=== PATIENT | male | born 1955 | race African-American/Black ===

== ENCOUNTER 2017-08-15 03:11 | Emergency (ER) | payer OTHER ==
[~2017-08-15] VITALS: Ht 182.9 cm; Wt 108.2 kg
[~2017-08-15 03:11] MED LIST: METF500T4 PO; NAPROSYN PO; PIOG15TA6 PO; SERT50TA12 PO
[2017-08-15 03:22] LABS: GLUCOSE,POINT OF CARE 107 MG/DL (70-110)
[2017-08-15] MEDS ORDERED: DiphenhydrAMINE HCL 50 MG/ML VIAL IM ONE (04:15)
[2017-08-15 04:48] VITALS: BP 151/89
== END 2017-08-15 05:31 | disposition home or self-care (01) ==
LOC: EMS 03:12
DX: L30.9 Dermatitis, unspecified (principal); E11.9 Type 2 diabetes mellitus without complications; F17.210 Nicotine dependence, cigarettes, uncomplicated
CPT/HCPCS: 82962; 96372; 99283; 99406; J1200